=== PATIENT | female | born 1945 | race Caucasian/White ===

== ENCOUNTER → 2018-07-28 | Outpatient (CLI) | payer MEDICARE ==
--- NOTE | 2018-07-28 09:55 | Diagnostic Imaging Report ---
PROCEDURE: US Thyroid. TECHNIQUE: Multiple real-time grayscale images were obtained of the thyroid in various projections. INDICATION: Previous left thyroidectomy. FINDINGS: The left lobe of thyroid is surgically absent. Right lobe measures 4.5 AP by 2 cm in width by 1.6 cm AP. There are 2 heterogeneous nodules both measuring less than a centimeter. No suspicious nodules are appreciated. IMPRESSION: Previous left thyroidectomy. 2 small benign-appearing nodules in right lobe of thyroid. Dictated by: Dictated on workstation # [id number]
== END ==
LOC: RAD 07:58
PROVIDERS: ATTEND Internal Medicine
DX: E04.2 Nontoxic multinodular goiter (principal); Z90.89 Acquired absence of other organs
CPT/HCPCS: 76536

== ENCOUNTER → 2019-07-15 | Outpatient (CLI) | payer MEDICARE ==
--- NOTE | 2019-07-15 10:47 | Diagnostic Imaging Report ---
Clinical indication: Patient bent over in an awkward position last night, now having mid back pain. Patient being treated for sciatica. Exam: X-ray of the lumbar spine, 3 views. Comparison: None. Findings: Lumbar spine has normal alignment. No acute fracture or dislocation. There are mildly hypertrophic spurs throughout the thoracolumbar spine. There is moderate to severe loss of intervertebral disc height at the L5-S1 level. There is lower lumbar spine facet arthropathy. Sacroiliac joints show no significant abnormality. There is surgical clips in the pelvis region. 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 Dictated by: Dictated on workstation # [id number]
--- NOTE | 2019-07-15 10:53 | Diagnostic Imaging Report ---
Clinical indication: Patient bent over in awkward position last night, now having mid back pain. Patient being treated for sciatica. Exam: X-ray of the thoracic spine, 3 views, including swimmer's view. Comparison: None. Findings: The visualized upper and mid thoracic spine on lateral view is limited due to overlapping anatomical structures and slightly overexposed images. There is osteopenia. There is no gross acute thoracic spine fracture or dislocation. There are degenerative spurs throughout the thoracic spine. Impression: 1: Limited visualization of the thoracic spine due to overlapping anatomical structures, osteopenia, and some overexposed x-ray images. 2: There is no gross acute thoracic spine fracture. If there is continued concern for fracture, then MRI of the thoracic spine would better evaluate. Dictated by: Dictated on workstation # [id number]
== END ==
LOC: RAD 10:00
PROVIDERS: ATTEND Physician Assistant
DX: M47.816 Spondylosis without myelopathy or radiculopathy, lumbar region (principal); M85.88 Other specified disorders of bone density and structure, other site
CPT/HCPCS: 72072; 72100

== ENCOUNTER → 2019-07-26 | Outpatient (CLI) | payer MEDICARE ==
--- NOTE | 2019-07-26 12:44 | Diagnostic Imaging Report ---
INDICATION: Routine screening. Comparison is made with prior mammogram from 08/28/2017 and 08/05/2016. 2-D and 3-D bilateral screening mammography was performed utilizing computer-aided aided detection. Both breasts remain heterogeneously dense, limiting the sensitivity of mammography. There are benign calcifications present. No mass or malignant-appearing microcalcifications are seen. The axillae are unremarkable. IMPRESSION: BI-RADS Category 2 No mammographic features suspicious for malignancy are identified. ACR BI-RADS Category 2: Benign findings. Result letter will be mailed to the patient. Note: At least 10% of breast cancer is not imaged by mammography. Dictated by: Dictated on workstation # [id number]
== END ==
LOC: RAD 07:19
PROVIDERS: ATTEND Nurse Practitioner
DX: Z12.31 Encounter for screening mammogram for malignant neoplasm of breast (principal)
CPT/HCPCS: 77067

== ENCOUNTER → 2020-07-30 | Outpatient (CLI) | payer MEDICARE ==
--- NOTE | 2020-07-30 14:55 | Diagnostic Imaging Report ---
INDICATION: Left upper thigh palpable mass. Sonographic interrogation of the area of palpable abnormality in the upper left thigh was performed. There is a circumscribed, homogeneous slightly hyperechoic mass just below the skin surface measuring 1.9 x 1.1 x 2.7 cm. This most likely represents a lipoma. No internal vascularity is seen. No other abnormalities are detected. IMPRESSION: Findings most suggestive of a lipoma at the area of palpable abnormality upper left thigh. Dictated by: Dictated on workstation # [id number]
--- NOTE | 2020-07-30 15:16 | Diagnostic Imaging Report ---
PROCEDURE: US Thyroid. TECHNIQUE: Multiple real-time grayscale images were obtained of the thyroid in various projections. INDICATION:Thyroid nodule, follow-up. Comparison is made with prior thyroid ultrasound from 07/28/2018. Postoperative changes of left thyroidectomy are again noted. Right thyroid lobe measures 4.9 x 2.4 x 2.2 cm. There are 2 nodules within the right lobe of the thyroid. Nodule in the upper pole measures approximately 6 mm x 6 mm x 4 mm compared with 7 mm x 5 mm x 6 mm on prior. A nodule in the midportion measures 5 mm x 5 mm x 4 mm compare with 9 mm x 4 mm x 5 mm on prior. No new thyroid mass is detected. IMPRESSION: Status post left thyroidectomy. Subcentimeter nodules in the right lobe of the thyroid are stable when compared with prior examination 2 years earlier. Dictated by: Dictated on workstation # [id number]
--- NOTE | 2020-07-31 13:11 | Diagnostic Imaging Report ---
INDICATION: Routine screening. COMPARISON: 07/26/2019 and 08/28/2017. TECHNIQUE: 2D and 3D bilateral screening mammography was performed with CAD. FINDINGS: Both breasts are heterogeneously dense, limiting the sensitivity of mammography. The parenchymal pattern appears stable. No mass or malignant appearing microcalcifications are seen. The axillae are unremarkable. IMPRESSION: No mammographic features suspicious for malignancy are identified. ACR BI-RADS Category 1: Negative. Result letter will be mailed to the patient. Note: At least 10% of breast cancer is not imaged by mammography. Dictated by: Dictated on workstation # [id number]
== END ==
LOC: RAD 14:00
PROVIDERS: ATTEND Internal Medicine
DX: Z12.31 Encounter for screening mammogram for malignant neoplasm of breast (principal); E04.2 Nontoxic multinodular goiter; R22.42 Localized swelling, mass and lump, left lower limb
CPT/HCPCS: 76536; 76881; 77063; 77067

== ENCOUNTER → 2022-12-15 | Outpatient (CLI) | payer MEDICARE ==
--- NOTE | 2022-12-15 15:58 | Diagnostic Imaging Report ---
INDICATION: RT SHOULDER PAIN RT BICEP PAIN COMPARISON: None. FINDINGS: 3 views of the right shoulder were obtained. There is no fracture, dislocation, or other acute bony abnormality identified. The soft tissues appear unremarkable. No radiopaque foreign body is identified. The visualized portions of the right lung are clear. IMPRESSION: No acute fractures or dislocations of the right shoulder. Dictated by: Dictated on workstation # [id number]
--- NOTE | 2022-12-15 16:12 | Diagnostic Imaging Report ---
INDICATION: RT SHOULDER PAIN RT BICEP PAIN COMPARISON: None. FINDINGS: 2 views of the right humerus were obtained and show no fractures, dislocations, or other acute bony abnormalities. Joint spaces are well maintained throughout. The soft tissues appear unremarkable. No unexpected radiopaque foreign bodies are identified. IMPRESSION: Unremarkable radiographic exam of the right humerus. Dictated by: Dictated on workstation # [id number]
== END ==
LOC: RAD 15:28
PROVIDERS: ATTEND Physician Assistant
DX: M25.511 Pain in right shoulder (principal)
CPT/HCPCS: 73030; 73060

== ENCOUNTER → 2023-03-09 | Outpatient (CLI) | payer MEDICARE ==
--- NOTE | 2023-03-09 14:32 | Diagnostic Imaging Report ---
PROCEDURE: US Thyroid. TECHNIQUE: Multiple real-time grayscale images were obtained of the thyroid in various projections. INDICATION: Thyroid nodule COMPARISON: 07/30/2020 and 07/28/2018 FINDINGS: Right thyroid lobe: The right thyroid lobe measures 4.3 x 1.8 x 2.0 cm. In the superior aspect right thyroid lobe there is a stable 0.5 x 0.4 x 0.5 cm hypoechoic nodule that is solid and has no echogenic foci, TI RADS 4. A smaller 0.4 x 0.4 x 0.4 cm isoechoic nodule with poorly defined margins and no echogenic foci is stable, TI RADS 3. Isthmus: The thyroid isthmus measures 0.2 cm. Left thyroid lobe: The left thyroid lobe is surgically absent. IMPRESSION: 1. The 2 right-sided thyroid nodules are unchanged since 2018. ACR TI-RADS: TR4 . TI-RADS Recommendations:TR4 - Moderately Suspicious:FNA if >1.5 cm; Follow if > 1.0 cm at 1, 2, 3 and 5 years. Dictated by: Dictated on workstation # [id number]
== END ==
LOC: RAD 08:40
PROVIDERS: ATTEND Internal Medicine
DX: E04.2 Nontoxic multinodular goiter (principal)
CPT/HCPCS: 76536